=== PATIENT | female | born 2005 | race Caucasian/White ===

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

== ENCOUNTER 2024-04-02 23:21 | Emergency (ER) | payer OTHER ==
[~2024-04-02] VITALS: Ht 177.8 cm; Wt 136.1 kg
[2024-04-02 23:35] VITALS: BP 147/102
== END 2024-04-03 01:16 | disposition home or self-care (01) ==
LOC: ER 23:21
DX: S13.4XXA Sprain of ligaments of cervical spine, initial encounter (principal); S20.219A Contusion of unspecified front wall of thorax, initial encounter; V89.2XXA Person injured in unspecified motor-vehicle accident, traffic, initial encounter
CPT/HCPCS: 71046; 72040; 99284-25

== ENCOUNTER → 2024-09-07 | Outpatient (CLI) | payer OTHER | LOC: LAB 12:47 → LAB SHORT 12:47 | DX: N39.0 Urinary tract infection, site not specified (principal) | CPT/HCPCS: 87077; 87086; 87186 ==

== ENCOUNTER 2024-11-27 13:33 | Emergency (ER) | payer OTHER ==
[~2024-11-27] VITALS: Ht 167.6 cm; Wt 136.1 kg
[2024-11-27 13:50] VITALS: BP 140/95
== END 2024-11-27 13:52 | disposition home or self-care (01) ==
LOC: ER 13:33
DX: S05.01XD Injury of conjunctiva and corneal abrasion without foreign body, right eye, subsequent encounter (principal); W22.8XXD Striking against or struck by other objects, subsequent encounter
CPT/HCPCS: 99282